=== PATIENT | female | born 1975 | race Two or more races ===

== ENCOUNTER 2016-05-16 02:30 | Inpatient (IN) | payer MEDICAID ==
[~2016-05-16] VITALS: Ht 167.6 cm; Wt 86.2 kg
[2016-05-16] VITALS (11 sets, daily range): BP systolic 130–163; BP diastolic 61–102; PULSE 67–96; RESP 18–20; Ht 167.6 cm; Wt 86.2 kg
[2016-05-16] MEDS ORDERED: PREN1TAB79 PO (02:43)
[2016-05-16 03:05] LABS: URINE BLOOD (Dip) POC 2+ (NEGATIVE)
[2016-05-16] MEDS ORDERED: LACTATED RINGER'S 1,000 ML IV SCH (03:09)
[2016-05-16] MEDS ORDERED: MAGNESIUM SULFATE 4 GM/100 ML 100 ML IV SCH (03:30)
[2016-05-16] MEDS ORDERED: CA GLUCONATE (GM) 10% 10ML INJ IV PRN (03:30)
[2016-05-16] MEDS ORDERED: LIDOCAINE 1% (MPF) 30 ML INJ INJ PRN (03:30)
[2016-05-16] MEDS ORDERED: OXYTOCIN 30 UNITS/LR 500 ML IV PRN ×3 (03:30→14:30)
[2016-05-16] MEDS ORDERED: CARBOPROST 250 MCG INJ IM PRN ×2 (03:30→14:30)
[2016-05-16] MEDS ORDERED: METHYLERGONOVINE 0.2 MG INJ IM PRN ×2 (03:30→14:30)
[2016-05-16] MEDS ORDERED: MISOPROSTOL 200 MCG TAB PR PRN ×2 (03:30→14:30)
[2016-05-16] MEDS ORDERED: OXYTOCIN 30 UNITS/LR 500 ML IV SCH (03:30)
[2016-05-16] MEDS ORDERED: LACTATED RINGER'S 1,000 ML IV PRN (03:30)
[2016-05-16] MEDS ORDERED: IBUPROFEN 600 MG TAB PO PRN (03:30)
[2016-05-16] MEDS ORDERED: BUTORPHANOL 2 MG INJ IV PRN (03:30)
[2016-05-16 03:46] LABS: ADD SCAN DIFF NO
[2016-05-16 03:49] LABS: ADD UMIC YES; URINE BILIRUBIN (Dip) NEGATIVE (NEGATIVE); URINE BLOOD (Dip) 3+ (NEGATIVE); URINE COLOR YELLOW (YELLOW); URINE GLUCOSE (Dip) NEGATIVE (NEGATIVE); URINE KETONES (Dip) TRACE (NEGATIVE); URINE LEUKOCYTE ESTERASE (Dip) NEGATIVE (NEGATIVE); URINE NITRITE (Dip) NEGATIVE (NEGATIVE); URINE TOTAL PROTEIN (Dip) 4+ (NEGATIVE); URINE UROBILINOGEN (Dip) 0.2 E.U./dL (0.1-1.0)
[2016-05-16 03:50] LABS: BASOPHILS % 0.4 % (0.0-2.0); EOSINOPHILS % 0.6 % (0.0-7.0); HEMATOCRIT 35.1 % (37.0-47.0); HEMOGLOBIN 11.7 g/dl (12.0-16.0); LYMPHOCYTES # 1.8 10^3/ul (0.8-2.9); LYMPHOCYTES % 36.2 % (15.0-51.0); MEAN CORPUSCULAR HEMOGLOBIN 29.3 pg (29.0-33.0); MEAN CORPUSCULAR HGB CONC 33.3 g/dl (32.0-37.0); MEAN CORPUSCULAR VOLUME 87.8 fl (82.0-101.0); MEAN PLATELET VOLUME 10.4 fl (7.4-10.4); MONOCYTE # 0.5 10^3/ul (0.3-0.9); MONOCYTES % 9.3 % (0.0-11.0); NEUTROPHIL # 2.6 10^3/ul (1.6-7.5); NEUTROPHILS % 53.1 % (39.0-77.0); PLATELET COUNT 287 10^3/UL (140-415); RED CELL DISTRIBUTION WIDTH 13.6 % (11.5-14.5)
[2016-05-16 03:58] LABS: ALBUMIN 3.1 g/dl (3.3-4.9); INR 0.91; POTASSIUM 4.1 mmol/L (3.5-5.1); PROTIME 12.2 Sec (12.2-14.2)
[2016-05-16 03:59] LABS: PARTIAL THROMBOPLASTIN TIME 28.6 Sec (25.0-35.0)
[2016-05-16 04:00] LABS: URIC ACID 4.8 mg/dl (3.1-7.9)
[2016-05-16 04:01] LABS: ALBUMIN/GLOBULIN RATIO 0.96; BILIRUBIN,INDIRECT 0.4 mg/dl (0-1.1); BILIRUBIN,TOTAL 0.4 mg/dl (0.2-1.3); CALCIUM 8.5 mg/dl (8.4-10.2); CREATININE 0.57 mg/dl (0.44-1.00); TOTAL PROTEIN 6.3 g/dl (6.1-8.1)
[2016-05-16 04:03] LABS: BACTERIA,URINE MANY; SQUAMOUS EPITHELIAL CELL,UR MODERATE; URINE RBCS >50 /HPF (0)
--- NOTE | 2016-05-16 04:05 | TRIAGE ---
OB Triage Datetime Report Generated by CPN: 05/16/2016 04:04 Datetime: 05/16/2016 03:07 Stage of : OB Triage Datetime: 05/16/2016 02:46 Assessment Type: Triage EGA: 40.4 Maternal Assessment Level of Consciousness: Fully Conscious DTR's/Clonus: DTRs 1+; No Clonus Headache: Denies Blurred Vision: No Respiratory Effort: Unlabored Breath Sounds, Left: Clear and Equal Breath Sounds, Right: Clear and Equal Nausea/Vomiting: Denies RUQ Epigastric Pain: Denies Lower Extremities Edema: Bilateral Lower Extremities Degree: Pitting Upper Extremities Edema: None Degree: None Facial Edema: None Fall Risk Assessment History of Falling: (0) No Secondary Diagnosis: (0) No Ambulatory Aid: (0) Bedrest/Nurse Assist IV Therapy: (0) No Gait: (0) Normal/Bedrest/Immobile Mental Status: (0) Oriented to Own Ability Fall Score: 0 Fall Risk Score Definition: No Risk: No action required Datetime: 05/16/2016 02:45 Time of Arrival: 05/16/2016 02:22 Arrived By: Wheelchair Arrived From: Home Chief Complaint: UCs, SROM @0100 Movement: Present Contractions: Regular Time Contractions Began: 05/16/2016 01:00 Contractions: q5mins Rupture of Membranes: Ruptured Vaginal Bleeding: Small Vaginal Discharge: Present Abdominal Trauma: Not Applicable Patient Complaints: Contractions; Cramping; Back Pain Time Provider Notified: 05/16/2016 03:07 Provider Notified: Initial Plan: EFM x2, VE Datetime: 05/16/2016 02:43 Stage of : OB Triage Vaginal Exam Dilatation (cms): 2.0 Effacement (%): 80 Station: -3 Exam By: Kamar TEJEDA Membrane Status: Ruptured Membranes Ruptured Date/Time: 05/16/2016 01:00 Membranes Rupture Method: Spontaneous Amniotic Fluid Color: Clear Amniotic Fluid Amount: Moderate (Annotations: per pt) Vaginal Bleeding: None Cervix, Consistency: Firm Cervix, Position: Posterior Presentation 'A': Cephalic Datetime: 05/16/2016 02:38 Stage of : OB Triage Labor Evaluation Monitor Mode: External Heart Rate Monitor Mode: External US
[2016-05-16] MEDS: MAGNESIUM SULFATE 20 GM/500 ML 500 ML IV SCH ×4 (04:12→22:43)
[2016-05-16] MEDS ORDERED: LABETALOL HCL 20MG INJ ONE (04:20)
[2016-05-16] MEDS ORDERED: LABETALOL HCL 20MG INJ IV ONE ×2 (04:30→06:00)
[2016-05-16] MEDS ORDERED: FENTAnyl 2MCG/ML-ROPIV 0.2% 100 ML ONE (04:56)
--- NOTE | 2016-05-16 07:04 | HP ---
Date/Time of Note Date/Time of Note DATE: 05/16/16 TIME: 06:56 OB - History Hx of Present Free Text/Dictation Patient s/p SROM at 0100 , clear fluid. Heidy every 1-3 min Had HTN 2 days ago at clinic and was told to go to L&D for induction , but did not show up until last night when she presented due to SROM and ealry labor Estimated Due Date: May 12, 2016 : 2 Para: 1 Spontaneous : 1 Care: Good Care Obstetrical Complications: Gestational Hypertension Past Family/Social History * Past Medical, Surgical, Family and Obstetric Histories reviewed from chart. OB Admission Exam Vital Signs Vital Signs Vital Signs Date Time Temp Pulse Resp B/P Pulse Ox O2 Delivery O2 Flow Rate FiO2 05/16/16 02:40 97.8 96 20 163/102 Room Air Physical Exam HEENT: WNL Lungs: Clear Abdomen: WNL Extremities: Normal Cervical Dilatation: 2cm Effacement: 75% Station: -3 Amniotic Fluid: Clear Heart Rate: 130's Accelerations: Accelerations Present Decelerations: Variable Decelerations Varibility: Moderate Contractions on Admission: < 5 Minutes Apart Intensity: Firm Last 72 hours Lab Results CBC & BMP 05/16/16 03:25 Liver Function Test 05/16/16 03:25 Alanine Aminotransferase (ALT/SGPT) 36 Albumin 3.1 L Alkaline Phosphatase 161 H Aspartate Amino Transf (AST/SGOT) 42 Direct Bilirubin 0.00 Total Protein 6.3 OB Assessment/Plan Other Assessment: IUP at 40 weeks and 4 days S/p SROM early labor HTN, some in severe range Asmptomatic S/p IV Labetalol x 2 dose. Now better control with epidural PIH panel ordered pending On mangesium Will watch carefully Watch closely labor curve Patient managed overnight Dr. White to be informed who will take care of the management in am. CAMPOS HAYWARD MD May 16, 2016 07:04
[2016-05-16] MEDS ORDERED: HYDROmorphONE 1 MG/ML SYG IV PRN ×2 (08:30)
[2016-05-16] MEDS ORDERED: NALOXONE (0.4 MG/ML) INJ IV PRN (08:30)
[2016-05-16] MEDS ORDERED: ONDANSETRON 4 MG INJ IV PRN (08:30)
[2016-05-16] MEDS ORDERED: FENTAnyl 2MCG/ML-ROPIV 0.2% 100 ML BAG EPI SCH (08:30)
[2016-05-16] MEDS ORDERED: DIPHENHYDRAMINE 50 MG INJ IV PRN (08:30)
--- NOTE | 2016-05-16 11:03 | LDN ---
Date/Time of Note Date/Time of Note DATE: 05/16/16 TIME: 11:03 Delivery Summary term preg. nsd Placenta Delivered: Spontaneously Meconium: none Perineum intact?: Yes Anesthesia type: Epidural Estimated blood loss: 350 Sponge & Needle done & correct: Yes All needle counts correct: Yes Any foreign bodies felt in the: No Problems: ALESSIO RUSSELL MD May 16, 2016 11:03
[2016-05-16] MEDS: OXYTOCIN 30 UNITS/LR 500 ML IV SCH ×4 (11:42→18:37)
[2016-05-16] MEDS ORDERED: WITCH HAZEL/GLYCERIN PAD PR PRN (14:30)
[2016-05-16] MEDS ORDERED: ACETAMINOPHEN/CODEINE #3 TAB PO PRN (14:30)
[2016-05-16] MEDS ORDERED: ACETAMINOPHEN 325 MG TAB PO PRN (14:30)
[2016-05-16] MEDS ORDERED: SENNA/DOCUSATE NA (8.6MG/50MG) TAB PO PRN (14:30)
[2016-05-16] MEDS ORDERED: BENZOCAINE 20% 56 ML SPRAY TOP PRN (14:30)
[2016-05-16] MEDS ORDERED: LANOLIN 7 GM TUBE TOP PRN (14:30)
[2016-05-16] MEDS ORDERED: MAGNESIUM HYDROXIDE 30ML CUP PO PRN (14:30)
[2016-05-16] MEDS ORDERED: ZOLPIDEM 5 MG TAB PO PRN (14:30)
[2016-05-16] MEDS ORDERED: DIPHENHYDRAMINE 25 MG CAP PO PRN (14:30)
[2016-05-16] MEDS ORDERED: INFLUENZA VIRUS VACCINE 0.5 ML SYG IM* ONE (17:00)
[2016-05-16] MEDS: IBUPROFEN 800 MG TAB PO SCH ×2 (17:44→23:43)
[2016-05-17] VITALS (14 sets, daily range): BP systolic 125–159; BP diastolic 65–84; PULSE 65–93; RESP 18
[2016-05-17] MEDS: LACTATED RINGER'S 1,000 ML IV* SCH ×3 (01:41→19:26)
[2016-05-17] MEDS: IBUPROFEN 800 MG TAB PO SCH ×3 (05:37→17:25)
[2016-05-17 06:54] LABS: ADD SCAN DIFF NO
[2016-05-17 07:01] LABS: BASOPHILS % 0.3 % (0.0-2.0); EOSINOPHILS % 0.4 % (0.0-7.0); HEMATOCRIT 30.8 % (37.0-47.0); HEMOGLOBIN 9.8 g/dl (12.0-16.0); LYMPHOCYTES # 2.4 10^3/ul (0.8-2.9); LYMPHOCYTES % 22.3 % (15.0-51.0); MEAN CORPUSCULAR HEMOGLOBIN 28.5 pg (29.0-33.0); MEAN CORPUSCULAR HGB CONC 31.8 g/dl (32.0-37.0); MEAN CORPUSCULAR VOLUME 89.5 fl (82.0-101.0); MEAN PLATELET VOLUME 10.3 fl (7.4-10.4); MONOCYTE # 0.6 10^3/ul (0.3-0.9); MONOCYTES % 5.3 % (0.0-11.0); NEUTROPHIL # 7.5 10^3/ul (1.6-7.5); NEUTROPHILS % 71.4 % (39.0-77.0); PLATELET COUNT 228 10^3/UL (140-415); RED BLOOD COUNT 3.44 10^6/ul (4.20-5.40); WHITE BLOOD COUNT 10.6 10^3/ul (4.8-10.8)
[2016-05-17] MEDS: MAGNESIUM SULFATE 20 GM/500 ML 500 ML IV SCH (08:54)
--- NOTE | 2016-05-17 12:42 | QN ---
Documentation Comment pt doing well vss exam wnl PPd1 sp [id number] continue care ROSALBA DESAI MD May 17, 2016 12:42
[2016-05-18 03:50] VITALS: BP 127/72; PULSE 76; RESP 19
[2016-05-18] MEDS: IBUPROFEN 800 MG TAB PO SCH ×3 (06:00→12:12)
[2016-05-18] MEDS: LACTATED RINGER'S 1,000 ML IV* SCH (06:01)
[2016-05-18 07:30] VITALS: BP 130/80; PULSE 85; RESP 19
[2016-05-18] MEDS ORDERED: VARICELLA VACCINE LIVE/PF 1,350 UNIT/0.5 ML ML SC* ONE (09:00)
[2016-05-18] MEDS ORDERED: DIPHTH/TET/ACEL PERTUSS (ADULT) 0.5 ML VIAL IM* ONE (09:00)
[2016-05-18] MEDS ORDERED: MEASLES,MUMPS,RUBELLA VACCINE INJ SC* ONE (09:00)
--- NOTE | 2016-05-18 11:33 | DS ---
Date/Time of Note Date/Time of Note DATE: 05/18/16 TIME: 11:29 Obstetrical Discharge Record Final Diagnosis Final Diagnosis: Term delivered Vaginal Delivery Obstetrical Delivery: Spontaneous Complications Preg induced Hypertension Tocolytics: Magnesium Sulfate Condition on Discharge Physical Assessment Last Vitals: day 2 This is the patient had normal vaginal delivery during the labor and noted elevated blood pressure patient was placed on magnesium sulfate for 24 hours it was discontinued yesterday at 11:00am her blood pressure since then has been running 130s over 80s patient has no complaint of headache blurry vision or epigastric pain she is being discharged home with follow-up instruction to make appointment with the clinic in 2 days for follow-up check. Current Medications Medications (Trade) Dose Ordered Sig/Denny Route PRN Reason Start Time Stop Time Status Last Admin Dose Admin Lactated Ringer's 1,000 ml @ 75 mls/hr [id number] IV 05/16/16 03:09 05/16/16 14:22 DC 05/16/16 03:34 Oxytocin/Lactated Ringer's 500 ml @ 0 mls/hr TITRATE PRN IV CERVICAL RIPENING 05/16/16 03:30 05/16/16 14:22 DC Butorphanol Tartrate (Stadol) 2 mg Q2H PRN IV PAIN 05/16/16 03:30 05/16/16 14:22 DC Lidocaine 30 ml 30 ml ONCE PRN INJ EPISIOTOMY/TEARING 05/16/16 03:30 05/16/16 14:22 DC Oxytocin/Lactated Ringer's 500 ml @ 125 mls/hr ONCE -MAY REPEAT X1 IV 05/16/16 03:30 05/16/16 14:22 DC 05/16/16 12:18 Oxytocin/Lactated Ringer's 500 ml @ 125 mls/hr ONCE IV 05/16/16 03:30 05/16/16 14:22 DC Ibuprofen 600 mg 600 mg ONCE PRN PO Mild Pain (Pain Score 1-3) 05/16/16 03:30 05/16/16 14:22 DC Lactated Ringer's 1,000 ml @ 2,000 mls/hr Q30M PRN IV PRE-EPIDURAL BOLUS 05/16/16 03:30 05/16/16 14:22 DC Oxytocin/Lactated Ringer's 500 ml @ 0 mls/hr ONCE PRN IV For Hemorrhage Management 05/16/16 03:30 05/16/16 14:22 DC Methylergonovine Maleate (Methergine) 0.2 mg ONCE PRN IM VAGINAL BLEEDING 05/16/16 03:30 05/16/16 14:22 DC Carboprost Tromethamine (Hemabate) 250 mcg ONCE PRN IM VAGINAL BLEEDING 05/16/16 03:30 05/16/16 14:22 DC Misoprostol 1000 mcg 1,000 mcg ONCE PRN ME VAGINAL BLEEDING 05/16/16 03:30 05/16/16 14:22 DC Magnesium Sulfate 100 ml @ 200 mls/hr ONCE IV 05/16/16 03:30 05/16/16 03:59 DC 05/16/16 03:35 Magnesium Sulfate (Magnesium Sulfate 20 Gm/500 ml) 500 ml @ 50 mls/hr Q10H IV 05/16/16 03:09 05/17/16 14:21 DC 05/17/16 08:54 Calcium Gluconate (Ca Gluc) 1 gm ONCE PRN IV FOR MAGNESIUM TOXICITY 05/16/16 03:30 05/16/16 14:22 DC Labetalol HCl (Labetalol) 20 mg STK-MED ONCE .ROUTE 05/16/16 04:20 05/16/16 04:21 DC Labetalol HCl 20 mg 20 mg ONCE ONCE IV 05/16/16 04:30 05/16/16 04:31 DC 05/16/16 04:24 Fentanyl/ Ropivacaine 100 ml @ ud STK-MED ONCE .ROUTE 05/16/16 04:56 05/16/16 04:57 DC Labetalol HCl (Labetalol) 20 mg ONCE ONCE IV 05/16/16 06:00 05/16/16 06:01 DC 05/16/16 05:42 Naloxone HCl (Narcan) 0.1 mg Q2M PRN IV FOR RESP RATE 8 OR LESS 05/16/16 08:30 05/16/16 14:22 DC Hydromorphone HCl (Dilaudid) 0.2 mg Q3H PRN IV PAIN LEVEL 1-5 05/16/16 08:30 05/16/16 14:22 DC Hydromorphone HCl (Dilaudid) 0.4 mg Q3H PRN IV PAIN LEVEL 6-10 05/16/16 08:30 05/16/16 14:22 DC Diphenhydramine HCl (Benadryl) 25 mg Q6H PRN IV ITCHING 05/16/16 08:30 05/16/16 14:22 DC Ondansetron HCl (Zofran Inj) 4 mg Q6H PRN IV NAUSEA AND/OR VOMITING 05/16/16 08:30 05/16/16 14:22 DC Fentanyl/ Ropivacaine 100 ml 100 ml EPIDURAL INFUSION EPI 05/16/16 08:30 05/16/16 14:22 DC Oxytocin/Lactated Ringer's 500 ml @ 125 mls/hr Q4H IV 05/16/16 14:12 05/16/16 22:11 DC 05/16/16 18:37 Lactated Ringer's (Lr) 1,000 ml @ 125 mls/hr Q8H IV* 05/16/16 14:12 05/17/16 01:41 Ibuprofen (Motrin) 800 mg Q6 PO 05/16/16 18:00 05/17/16 17:25 Acetaminophen/ Codeine Phosphate (Tylenol No.3) 2 tab Q4H PRN PO PAIN LEVEL 6-10 05/16/16 14:30 Diphenhydramine HCl (Benadryl) 25 mg Q6H PRN PO PRURITUS 05/16/16 14:30 Zolpidem Tartrate (Ambien) 10 mg QHS PRN PO INSOMNIA 05/16/16 14:30 Senna/Docusate Sodium (Senokot-S) 1 tab BID PRN PO CONSTIPATION 05/16/16 14:30 Magnesium Hydroxide (Milk Of Mag) 30 ml Q12H PRN PO CONSTIPATION 05/16/16 14:30 Witch Josefa/ Glycerin (Tucks Pads) 1 pad BEDSIDE MEDICATION PRN ME HEMORRHOID/EPISIOTMY PAIN 05/16/16 14:30 05/16/16 17:45 Benzocaine (Dermoplast [place]) 1 spray BEDSIDE MEDICATION PRN TOP HEMORRHOID/EPISIOTMY PAIN 05/16/16 14:30 05/16/16 17:45 Lanolin (Lbz-[id number]) 1 applic BEDSIDE MEDICATION PRN TOP BEDSIDE FOR NE TO NIPPLES 05/16/16 14:30 Measles/Mumps/ Rubella Vaccine Live (Mmr Ii Vaccine) 0.5 ml ONCE ONCE SC* 05/18/16 09:00 05/18/16 09:01 DC Diphtheria/ Tetanus/Acell Pertussis (Adacel) 0.5 ml ONCE ONCE IM* 05/18/16 09:00 05/18/16 09:01 DC Varicella Virus Vaccine Live (Varivax Vaccine With Diluent) 1,350 unit ONCE ONCE SC* 05/18/16 09:00 05/18/16 09:01 DC Acetaminophen 650 mg 650 mg Q4H PRN PO ELEVATED TEMPERATURE 05/16/16 14:30 Oxytocin/Lactated Ringer's 500 ml @ 0 mls/hr ONCE PRN IV For Hemorrhage Management 05/16/16 14:30 Methylergonovine Maleate (Methergine) 0.2 mg ONCE PRN IM VAGINAL BLEEDING 05/16/16 14:30 Carboprost Tromethamine (Hemabate) 250 mcg ONCE PRN IM VAGINAL BLEEDING 05/16/16 14:30 Misoprostol (Cytotec) 1,000 mcg ONCE PRN ME VAGINAL BLEEDING 05/16/16 14:30 Influenza Virus Vaccine (Fluzone) 0.5 ml ONCE ONCE IM* 05/16/16 17:00 05/16/16 17:01 DC 05/17/16 17:27 Voiding: Yes Bowel Movement: Yes Breast: Soft, non-tender, Filling Fundus: Firm Calf Tenderness: No Patient Condition: Good LV GUILLEN MD May 18, 2016 11:33
--- NOTE | 2016-05-18 11:35 | PD.PPDC ---
OCCUPATIONAL ANALYST Discharge Instruction Condition Patient Condition: Good Diet Diet: Resume Regular Diet Activity/Restrictions Activity: Normal Activity May Shower Restrictions: No Exercising No Lifting No Driving No Sexual Activity Nothing in the Vagina No Scurry No Tampons, douche Follow-up Follow-up with Physician: 2 Provider Information: Appointment clinic in 2 days to check her blood pressure Return to clinic for [employer] Instructions: Fever greater than 101 Chills Worsening abdominal pain Excessive Vaginal Bleeding More than 2 pads per hour Unable to tolerate diet OB Instructions: Breast Tenderness Depression Blurried Vision Headache LV GUILLEN MD May 18, 2016 11:34
[2016-05-18 12:12] VITALS: BP 128/85; RESP 18
== END 2016-05-18 14:18 | disposition home or self-care (01) | DRG 775 ==
LOC: OBT 02:30 → L-D 02:30 → OBT 03:10 → L-D 03:10 → PP1 14:17
PROVIDERS: ADMIT Obstetrics & Gynecology; ATTEND Obstetrics & Gynecology
PROC: 10E0XZZ Delivery of Products of Conception, External Approach (ICD-10-PCS; principal; 2016-05-16)
DX: O48.0 Post-term pregnancy (principal); O13.3 Gestational [pregnancy-induced] hypertension without significant proteinuria, third trimester; Z3A.40 40 weeks gestation of pregnancy; Z37.0 Single live birth
CPT/HCPCS: 36415; 62319; 80053; 81001; 81003; 83735; 84560; 85025; 85610; 85730; 86592; 86850; 86885; 86900; 86901; 87340; 90686; 90715; 90716; 99464; G0463; J2590; J2790; J3010; J3475; J7120